=== PATIENT | male | born 1985 | race Caucasian/White ===

== ENCOUNTER 2023-01-11 14:09 | Inpatient (IN) | payer SELFPAY ==
[2023-01-11] VITALS (52 sets, daily range): BP systolic 149–225; BP diastolic 83–134; PULSE 66–106; RESP 10–28; TEMP 36.4–37.1; O2SAT 92–99; BMI 42.1
--- NOTE | 2023-01-11 14:09 | ECG_ITS ---
[facility] Test Date: 2023-01-11 Pat Name: Gokul Adams Department: Room: Gender: Male Licensed Prosthetist: : 1985 Requested By: Jose Ortiz Order Number: [id number] Tae MD: Dean Moreno M.D. Measurements Intervals [place] Rate: 97 P: 44 IL: 164 QRS: 44 QRSD: 90 T: 66 QT: 354 QTc: 451 Interpretive Statements SINUS RHYTHM NON SPECIFIC ST T WAVE CHANGES No previous ECG available for comparison Electronically Signed On 01-11-2023 16:15:02 CDT by Dean Moreno M.D. [id number]
--- NOTE | 2023-01-11 14:15 | XRR_ITS ---
PROCEDURE INFORMATION: Exam: XR Chest Exam date and time: 01/11/2023 2:24 PM Age: 37 years old Clinical indication: Pain; Angina pectoris; Additional info: Chest pain TECHNIQUE: Imaging protocol: Radiologic exam of the chest. Views: 1 view. COMPARISON: No relevant prior studies available. FINDINGS: Lungs: Pulmonary hypoinflation with associated bronchovascular crowding. No consolidation. Pleural spaces: No pleural effusion or pneumothorax. Heart/Mediastinum: Accentuation of the cardiomediastinal silhouette attributed to hypoinflated lungs. Bones/joints: Unremarkable. XR/XR chest 1V portable [id number] IMPRESSION: Pulmonary hypoinflation without acute findings.
--- NOTE | 2023-01-11 14:15 | ED_ITS ---
HPI - Chest Pain General: Chief Complaint: Chest Pain Stated Complaint: stemi Time Seen by Provider: 01/11/23 14:15 Source: patient Mode of arrival: EMS ([facility]) History of Present Illness: 37-year-old male presents to the emergency room with complaints of shortness of breath and chest pain. 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 Is a strong family history of coronary artery disease his father in his 40s myocardial infarction. He is not previously been known to have any coronary artery disease. MD complaint: chest pain Onset (ago): minute(s) Timing of current episode: episodic Prior episodes: No Onset: during rest Pain location: left chest Pain radiation: left arm Severity: moderate Quality: tightness, aching and heaviness Relieving factors: nothing Exacerbating factors: nothing Associated symptoms: Deny abdominal pain, diaphoresis, dyspnea, fever(s), leg edema, nausea, palpitations, sense of impending doom, syncope or vomiting Treatment prior to arrival: none Review of Systems Const: Denies: fever(s), chills or diaphoresis Card: Reports: chest pain; Denies: palpitations, edema or syncope Resp: Denies: dyspnea GI: Denies: abdominal pain, nausea or vomiting : Denies: flank pain, dysuria, urinary frequency or urinary urgency Skin/Breast: Denies: rash or pruritus PFS ED PFSH: Medical History Methamphetamine abuse Physical Exam Const: GENERAL APPEARANCE: cooperative and comfortable ORIENTATION/CONSCIOUSNESS: Yes awake, Yes oriented to person, Yes oriented to place and Yes oriented to time HENMT: COMMON NORMALS: normocephalic, atraumatic and hearing grossly normal bilaterally HEAD & SCALP: normocephalic and atraumatic Resp: COMMON NORMALS: normal respiratory effort, No retractions, No use of accessory muscles and clear to auscultation bilaterally AUSCULTATION: clear to auscultation bilaterally Cardio: COMMON NORMALS: regular rate, regular rhythm and No murmurs present (Cardio) RATE: regular rate RHYTHM: regular rhythm GI: COMMON NORMALS: Soft to palpation and No hepatosplenomegaly present AUSCULTATION: Yes normoactive bowel sounds PALPATION: Yes Soft to palpation, No Tenderness to palpation present (GI), No Guarding due to palpation present (GI) and Yes No hepatosplenomegaly present Extremity: COMMON NORMALS: normal to inspection, capillary refill normal, no clubbing, cyanosis or edema, no calf tenderness and no pedal edema Neuro: SENSORIUM/ORIENTATION: Yes oriented to person, Yes oriented to place and Yes oriented to time Skin: COMMON NORMALS: no rashes or lesions noted GENERAL SKIN EXAM: no rashes or lesions noted Course Vital Signs: Vital signs: Vital Signs Temperature 98.8 F 01/11/23 14:15 Pulse Rate 96 01/11/23 14:30 Respiratory Rate 16 01/11/23 14:30 Blood Pressure 150/99 01/11/23 14:30 Pulse Oximetry 93 01/11/23 14:30 Oxygen Delivery Me thod Room Air 01/11/23 14:30 MDM - Chest Pain Medical Decision Making Acute ST elevation [place] patient given Plavix and heparin. Dr. Fan is at the bedside seen the patient reviewed the EKG concurs she is planning to take him directly to the Gas Compressor Turbine Operator. Medical Records I reviewed the patient's medical records. Lab Data I reviewed the patient's lab results. Radiology Impressions Chest X-Ray 01/11/23 14:15 IMPRESSION: Pulmonary hypoinflation without acute findings. All radiology interpretation(s) finalized by discharge Discharge Plan Discharge Patient Disposition: Admitted As Inpatient Clinical Impression: ST elevation myocardial infarction (STEMI), Methamphetamine abuse Condition: Stable Coding Level of Care Code ED Color Matcher for Lalita Persaud
[2023-01-11] MEDS: clopidogrel 300 mg Tablet 600 MG PO (14:20)
[2023-01-11] MEDS: heparin 5,000 unit/mL INJ 1 mL 4000 UNIT IVP (14:23)
--- NOTE | 2023-01-11 14:29 | PM.HP ---
Providers/Chief Complaint Admitting Physician: Dean Moreno MD/ Interventional Cardiology Chief Complaint: Chest pain History of Present Illness Gokul Adams is a 37 year old male with no significant prior cardiac history, family history of CAD who called EMS when he started having severe substernal chest pain. He was given aspirin and EKG in the field showed borderline ST T wave changes in anterior leads and inferior leads. STEMI alert was called. On arrival to the emergency room his EKG had dynamic changes however not meeting STEMI criteria. At this time he was chest pain-free. Given patient's chest pain decided to emergently take him to the cardiac Methods Analyst. Patient had told emergency room team about methamphetamine earlier today. Review of Systems Const: Denies: fever(s), chills or diaphoresis Card: Reports: chest pain; Denies: palpitations, edema or syncope Resp: Denies: dyspnea GI: Denies: abdominal pain, nausea or vomiting : Denies: flank pain, dysuria, urinary frequency or urinary urgency Skin/Breast: Denies: rash or pruritus Medications/Allergies Allergies Allergy/AdvReac Type Severity Reaction Status Date / Time No Known Allergies Allergy Verified 01/11/23 14:24 PFSH Acute PFSH: Medical History Methamphetamine abuse Vitals/I&O/Wt Last Vital Signs Temp 98.8 F 01/11/23 14:15 Pulse 106 H 01/11/23 14:15 Resp 22 H 01/11/23 14:15 BP 225/120 01/11/23 14:17 Pulse Ox 98 01/11/23 14:17 O2 Del Method Room Air 01/11/23 14:17 Weight last 48 hrs Weight 277 lb Physical Exam Narrative: GENERAL: Patient is alert, awake and oriented x3. [] NECK: No jugular vein distension. [] HEENT: No cyanosis. No icterus. No pallor. [] HEART: Regular S1 and S2. No murmur, rub or gallop. [] LUNGS: Clear to auscultate bilaterally. []] CENTRAL NERVOUS SYSTEM: Grossly nonfocal. [] EXTREMITIES: Lower extremities with 1+ edema bilaterally. Data 01/11/23 15:26 01/11/23 15:26 A&P Assessment and plan (1) Unstable angina: (2) Methamphetamine abuse: Plan Patient EKG is not meeting STEMI criteria however he did have dynamic EKG changes in anterior and inferior leads. Given his on and off chest pain that is severe, family history of CAD we will proceed with emergent cardiac catheterization with possible percutaneous coronary intervention. Risks and benefits of the procedure have been discussed with the patient. He understands them and wants to proceed. Patient given aspirin, Plavix and heparin bolus. We will order echocardiogram. Postprocedure patient will be transferred to ICU. Attestations Medical Necessity Statement*: Care expected to cross 2 midnights. Patient has presented with unstable angina and going for emergent cardiac catheterization with possible percutaneous coronary intervention. Coding Level [facility] Care Code [facility] Unstable angina I20.0 Methamphetamine abuse F15.10
--- NOTE | 2023-01-11 14:32 | XACV_ITS ---
Exam Room: 2 Ht: 173 cm Wt: 126 kg BSA: 2.52 m2 Gender: Male : 1985 Any Known Allergies: No known allergies Exam Priority: Routine Indication(s): - Acute coronary syndrome - Unstable angina Procedure(s): Procedure Description: Diagnostic procedure Procedure Description: PCI procedure Procedure Description: Coronary IVUS Procedure Description: Drug Eluting Coronary Stent Procedure Description: PTCA Procedure Description: Miscellaneous Procedure Description: Angio-Seal Procedure Description: ACT Procedure Description: Coronary Angiography Diagnostic Cath Status: Emergency Diagnostic Findings * INDICATION: 37-year-old man with no prior cardiac history called EMS with severe substernal chest pain. STEMI alert was called as patient was having dynamic EKG changes however EKG performed in ER did not show ST elevation LA. Given patient's typical chest pain consistent with unstable angina and dynamic EKG changes, we decided to take patient for emergent cardiac cath. * Left Main has no significant disease. * Circumflex has no significant disease. * Right Coronary Artery has no disease. * Proximal Left Anterior Descending: severe 90% stenosis, SURJIT: 3 flow. * Coronary angiography shows right dominance. PCI Status: Emergency PCI Indication: Other Interventional Findings * Procedure detail: We engaged left main artery with XB 3.5 guide catheter. IV heparin was administered to maintain anticoagulation. 0.014 run-through guidewire was used to cross the stenosis and was put in distal LAD. We predilated the stenosis with 2.5 x 12 mm semicompliant balloon. This was followed by placement of 3.5 x 15 mm resolute Boris drug-eluting stent. We then performed IVUS that showed minimal underexpansion of the stent. We proceeded with high pressure post dilation with 3.5x12 mm NC balloon. At this time final angiogram was performed that showed excellent stent expansion, no residual stenosis and SURJIT-3 flow. Patient left the Airborne And Air Delivery Specialist in stable condition.. * Proximal Left Anterior Descendin% stenosis treated with a AB TREK 2.50X12 RX BALLOON, BHANU Montemayor BORIS 3.5X15 SARA, and BHANU MARTINEZ EUPHORA RX [id number] BALLOON. 0% residual stenosis, SURJIT: 3 flow. Conclusions 1. Severe proximal LAD stenosis status post PCI with 1 stent.. 2. Proximal Left Anterior Descending was treated with a Balloon, Drug Eluting Stent, and Balloon. Recommendations * Dual antiplatelet therapy with aspirin and Plavix for least 1 year. * High intensity statin therapy. * Outpatient cardiology follow-up in 2 to 4 weeks. Interventional RX Recommendation: PCI w/o planned CABG Diagnostic RX Recommendation: PCI w/o planned CABG Anticoagulation: Heparin Pressures Phase:Rest AO : 125 / 105 ( 116 ) @ 3:53:00 PM 115 / 99 ( 108 ) @ 4:02:00 PM 138 / 82 ( 106 ) @ 4:06:00 PM 127 / 100 ( 114 ) @ 4:33:00 PM 120 / 105 ( 113 ) @ 4:40:00 PM Clinical Evaluation EBL: 5mL-10mL Procedural Details Pre-Procedure Time Out. Identified patient by full name and date of as verbalized by the patient/guarantor. Does the consent match the physician's order: N/A Emergent; Informed Consent not obtained due to time critical life threat. Accurate & Complete Informed Consent: N/A Emergent; Informed Consent not obtained due to time critical life threat. Inpatient/Outpatient History & Physical on Chart: N/A Emergent; Informed Consent not obtained due to time critical life threat. If H&P is completed, is and addenduem needed: N/A Emergent; Informed Consent not obtained due to time critical life threat; If yes, is the addendum complete: N/A Emergent; Informed Consent not obtained due to time critical life threat. Visualize and Verify Site with Patient/Guarantor: N/A. Relevant Radiology Images available: N/A Emergent; Informed Consent not obtained due to time critical life threat. Pre-op teaching completed and patient verbalized understanding. The risks, benefits, and alternatives of sedation and/or procedure were discussed by physician. The patient agrees to continue. Procedure started. [facility] Clinical Fraility Score: 3: Managing Well. Airborne And Air Delivery Specialist Indications: ACS <= 24 hours. Chest Pain Symptom Assessment: Typical Angina Symptoms. Cardiovascular Instability: Yes, if yes, Persistant Ischemic Symptoms. Correct patient, site and procedure confirmed by cath team. Current diagnosis: STEMI. PERRLA. Strong, equal hand cold roll packer sheet iron bilaterally. Lungs clear x 5 lobes. IV Site on Arrival: 18 gauge in the right anticubital. IV Site on Arrival: 18 gauge in the left anticubital. IV Fluids: 0.9% NaCl at KVO. 0 mL infused prior to laboratory geneticist. Pre Procedural Pulses: bilateral dorsalis pedis was 3+. Pre Procedural Pulses: bilateral posterior tibial was 3+. Pre Procedural Pulses: bilateral radial was 3+. Oxygen started at 2liters/min via nasal canula. right groin was prepped with chloroprep then draped in the usual sterile fashion. right radial was prepped with chloroprep then draped in the usual sterile fashion. Physician notified. Baseline sample Acquired. HR: 86 BPM. Patient's family unavailable. Equipment: 6F - Radial. Cardiac Cath Pack. ACIST Manifold Kit Model BT 2000. Heparinized Saline (2 units/mL), 1000 mL bag. Physician arrived. Physician scrubbed in. Immediate Pre-Procedure Time Out. Correct Patient: Yes; Correct Procedure: Yes; Correct Site: N/A Emergent; Informed Consent not obtained due to time critical life threat; Correct Patient Position: N/A Emergent; Informed Consent not obtained due to time critical life threat; Correct Supplies: N/A Emergent; Informed Consent not obtained due to time critical life threat; Dried Flammable Prep: N/A Emergent; Informed Consent not obtained due to time critical life threat; Blood Products Available: N/A Emergent; Informed Consent not obtained due to time critical life threat;. Lidocaine 1% infiltrated to the right radial. Arterial access obtained. Unable to thread wire. Needle and wire out, Dr. Moreno holding manual pressure. Arterial access obtained. A 5 paraguayan TIG catheter in over the exchange J wire. Unable to cannulate the LCA or RCA. Catheter removed over the exchange J wire. A 5 paraguayan JR4 catheter in over the exchange J wire. Multiple views taken of right coronary artery. Catheter removed over the exchange J wire. A 5 paraguayan JL3.5 catheter in over the exchange J wire. Multiple views taken of left coronary artery. Catheter removed over the exchange J wire. 6 paraguayan XB 3 guide catheter was inserted over the the exchnge J wire. Guide catheter out over the exchange J wire. 6 paraguayan XB 3.5 guide catheter was inserted over the the exchange J wire. Guide catheter out over the exchange J wire. Not enough guide support for PCI, will move to femoral access. A TR Band was successful obtaining hemostatsis at the Right Radial artery insertion site. Anesthesia called for assistance with sedation. Lidocaine 1% infiltrated to the right groin. Arterial access obtained with micropuncture set. Lidocaine 1% infiltrated to the right groin. Anesthesia here, but did not bring equipment. Will go back to OR. 6 paraguayan XB 3.5 guide catheter was inserted over the the exchange J wire. Runthrough guidewire was advanced through the guide catheter to lesion in the prox LAD. Inflation number : 1 A AB TREK 2.50X12 RX BALLOON was prepped and advanced across the Prox LAD , then inflated to 12 DM for 0:15 seconds. Inflation number: 2 The AB TREK 2.50X12 RX BALLOON was reinflated across the Prox LAD, to 12 DM for 0:18 seconds. Balloon out. Results checked. Anesthesia here. See anesthesia record for further airway and sedation management. Inflation Number : 3 A BHANU Montemayor BORIS 3.5X15 SARA -Lot Number# [id number] was prepped and advanced across the Prox LAD. The stent was deployed at 12 DM for 0:18 seconds. Exp 2024-08-21. Stent balloon out over wire. Results checked. IVUS catheter in. Measurements obtained. IVUS catheter out. Inflation number : 4 A BHANU NC EUPHORA RX [id number] BALLOON was prepped and advanced across the Prox LAD , then inflated to 18 DM for 0:13 seconds. Balloon out. Results checked. ACT drawn. Results 332 seconds. Therapeutic limits - pre-heparin administration 90-150 seconds and monitoring heparin during a vascular procedure >250 seconds. Guide catheter out over the exchange J wire. A Right femoral angiogram was performed to determine safe placement of closure device. A Angio-Seal VIP ([place]) was successful obtaining hemostatsis at the Right Femoral artery insertion site. Lot # [id number]. Exp 2023-07-18. Dr. Moreno scrubbed out. Angioseal placed without complications. No signs or symptoms of hematoma noted. Sterile dressing applied per usual sterile fashion. Post Procedure: Pulses reassessed and unchanged. PERRLA. Strong, equal hand cold roll packer sheet iron bilaterally. No VTE prophylaxis required. Medication's Wasted: Nitro = 49.4 mg. Medication's Wasted: Heparin = 2000 units. Total IV fluids: 88 mL. Post-op diagnosis: PCI of the Prox LAD. PCI Indication: Unstable Angina. Complications: none. Estimated blood loss: 5mL-10mL. Responsiveness - Normal response to verbal stimuli; alert and oriented, PERRLA. Airway - Unaffected, no intervention required; spontaneous ventilation. Circulation: W/N/L, pulses unchanged. Nausea/Vomiting: No. Procedure completed. Patient transferred by bed to ICU. Vital chart was stopped. Access Site Site: Right Radial artery Sheath Size: 6 Fr Hemostasis Method: TR Band Hemostasis Success: Successful Site: Right Femoral artery Sheath Size: 6 Fr Hemostasis Method: Angio-Seal VIP ([place]) Hemostasis Success: Successful Procedure Medications Start: 2:42 PM Stop: 2:42 PM Medication: Versed Amount: 1 mg Route: I.V. Start: 2:43 PM Stop: 2:43 PM Medication: Fentanyl Amount: 50 mcg Route: I.V. Start: 2:44 PM Stop: 2:44 PM Medication: Nitrogylcerin Amount: 200 mcg Route: I.A. Start: 2:47 PM Stop: 2:47 PM Medication: Versed Amount: 1 mg Route: I.V. Start: 2:47 PM Stop: 2:47 PM Medication: Fentanyl Amount: 25 mcg Route: I.V. Start: 2:51 PM Stop: 2:51 PM Medication: Heparin Amount: 1000 units Route: I.V. Start: 2:48 PM Stop: 2:48 PM Medication: Nitrogylcerin Amount: 200 mcg Route: I.A. Start: 3:04 PM Stop: 3:04 PM Medication: Fentanyl Amount: 25 mcg Route: I.V. Start: 3:09 PM Stop: 3:09 PM Medication: Nitrogylcerin Amount: 200 mcg Route: I.A. Start: 3:29 PM Stop: 3:29 PM Medication: Heparin Amount: 7000 units Route: I.V. Start: 3:35 PM Stop: 3:35 PM Medication: Heparin Amount: 1000 units Route: I.V. I, the attending physician, have reviewed and verified all procedure medications. Yes, all medications given per verbal order History/Risk Factors Obesity: Yes Report Signatures Finalized by Dean Moreno MD on 01/12/2023 10:40 AM
--- NOTE | 2023-01-11 15:01 | PC.NURSE ---
STEMI alert called at 1400, pt arrived approx 1406 via AIR EVAC, AIR EVAC administered x4 nitro SL, 325 ASA, and started nitro gtt. this nurse administered 4000 units heparin, 600 plavix, NS gtt infusing. pt has bilateral 18G IV's. pt placed in gown, groin/R wrist shaved, seafood specialist arrived at 1413, computer lab assistant arrived at 1430, pt went to computer lab assistant 1432. pts boots left in ED 11.
[2023-01-11] MEDS: sodium chloride 0.9% 1,000 ML 999 ML IV (15:06)
[2023-01-11 15:39] LABS: Basophils # 0.1 10^3/uL (0.0-0.1); Eosinophils # 0.3 10^3/uL (0.0-0.8); Eosinophils % 4.1 %; Hematocrit 42.6 % (37-53); Lymphocytes # 1.8 10^3/uL (0.8-4.8); Lymphocytes % 21.4 %; Mean Corpuscular HGB Conc 32.6 g/dL (30-55); Mean Corpuscular Hemoglobin 29.9 pg (27-33); Mean Corpuscular Volume 91.6 fl (82-101); Mean Platelet Volume 8.1 fL (7.4-10.4); Monocytes # 0.6 10^3/uL (0.2-0.9); Monocytes % 7.6 %; Neutrophils # 5.41 10^3/uL (1.8-7.7); Neutrophils % 65.5 %; Nucleated Red Blood Cells % 0 %; Platelet Count 301 10^3/cmm (157-399); Red Blood Count 4.65 10^6/uL (3.85-5.65); Red Cell Distribution Width 12.1 % (12.1-15.1); White Blood Count 8.26 10^3/uL (3.29-11.43)
[2023-01-11 16:04] LABS: Alanine Aminotransferase 19 U/L (0-41); Albumin Level 3.8 g/dL (3.5-5.2); Alkaline Phosphatase 27 U/L (40-130); Aspartate Amino Transferase 21 U/L (0-40); Blood Urea Nitrogen 12 mg/dL (6-20); Calcium 8.5 mg/dL (8.5-10.5); Carbon Dioxide 26 mmol/L (22-29); Chloride 102 mmol/L (98-107); Globulin 2.7 g/dL (1.3-4.6); Glomerular Filtration Rate 83.6 mL/min (90-130); Glucose 144 mg/dL (65-115); Osmolality Calculated 286 mOsm/kg (285-295); Sodium 137 mmol/L (136-145); Total Bilirubin 0.2 mg/dL (0.15-1.2); Total Protein 6.5 g/dL (6.6-8.7)
--- NOTE | 2023-01-11 16:07 | USCV_ITS ---
Gokul Adams Age: 37 Gender: M : 1985 Exam Date: 01/11/2023 18:33 Ordering Phys: Dean Moreno M.D ([email or web address]) Technologist: JAREK Exam Location: [facility] [place] Indication: post cardiac cath today. No history of cardiac intervention per patient. BP: 159 / 103 HR: 81 Rhythm: Sinus Technical Quality: Adequate MEASUREMENTS (Male / Female) Normal Values 2D ECHO LV Diastolic Diameter PLAX 4.4 cm 4.2 - 5.9 / 3.9 - 5.3 cm LV Systolic Diameter PLAX 2.6 cm IVS Diastolic Thickness 1.7 cm 0.6 - 1.0 / 0.6 - 0.9 cm IVS Systolic Thickness 2.4 cm LVPW Diastolic Thickness 1.5 cm 0.6 - 1.0 / 0.6 - 0.9 cm LVPW Systolic Thickness 2.0 cm LVOT Diameter 2.2 cm LV Ejection Fraction 2D Teich 72.9 % LV Ejection Fraction MOD 2C 61.0 % LV Ejection Fraction 2C AL 61.2 % LA Diameter 4.2 cm LA Width 4.7 cm LA Height 5.7 cm RA Width 3.6 cm RA Height 5.2 cm Aorta at Sinotubular Diameter 3.4 cm IVC Diameter 1.3 cm M-MODE Aortic Annulus Diameter 3.2 cm LA Ao Ratio MM 1.2 MV E Point Septal Separation 0.3 cm DOPPLER AV Peak Velocity 113.0 cm/s LVOT Peak Velocity 104.0 cm/s AV Area Cont Eq vti 3.5 cm squared AV Area Cont Eq pk 3.5 cm squared MV Peak Velocity 97.0 cm/s MV Area PHT 3.7 cm squared Mitral E to A Ratio 1.1 MV E' Velocity 51.0 cm/s Mitral E to MV E' Ratio 8.7 Mitral E to LV E' Lateral Ratio 8.7 Mitral E to LV E' Septal Ratio 8.8 TV Peak E Velocity 43.0 cm/s PV Peak Velocity 118.0 cm/s RV Acceleration Time 0.1 s RV Ejection Time 0.4 s RV AcT/ET 0.2 FINDINGS Left Ventricle Left ventricle is normal in size. LV systolic function is normal with EF of 55 to 60%. No regional wall motion abnormalities are seen. Right Ventricle Normal in size and function Right Atrium Normal in size Left Atrium Normal in size Mitral Valve Structurally normal mitral valve. Aortic Valve Structurally normal aortic valve. No significant stenosis or regurgitation. Tricuspid Valve Trace tricuspid regurgitation. Pulmonic Valve Not well-visualized Pericardium Normal Aorta Normal in size IVC Appears to be normal CONCLUSIONS LV systolic function is normal with EF of 55 to 60%. Trace tricuspid regurgitation. No comparison studies are available Dean Moreno MD (Electronically Signed) Final Date: 12 January 2023 08:16 S
[2023-01-11 16:08] LABS: Troponin(5th) Baseline 130 ng/L (0-15)
[2023-01-11 16:34] LABS: CKMB 21.9 ng/mL (0-10.4)
[2023-01-11 16:36] LABS: Estmated Average Glucose 148; Hemoglobin A1C 6.8 % (4.0-6.0)
[2023-01-11 17:32] LABS: Troponin 5 2HR 239.4 ng/L (0-15); Troponin 5 2HR Delta 109.4 ABS# (0-10)
[2023-01-11] MEDS: hyDRALAzine 20 mg/mL INJ 1 mL 10 MG IVP (17:52)
--- NOTE | 2023-01-11 17:58 | PC.NURSE ---
Recieved patient form track repair laborer staff at 1610. patient is a ittle groggy, but oriented to person, place, time, and situation. BP: 156/107, HR: 80, SPO2: 96% on room air. Temp: 97.9. TR band in place with no signs of internal or external bleeding. Dressing to right groin in place, with no signs of internal or external bleeding. Patient educated on need to keep leg straight and strict bedrest for 4 hours.
--- NOTE | 2023-01-11 18:00 | PC.NURSE ---
Patient is hypertensive. BP: 170/129. Nurse alerted Dr cardenas. recieved order for IVP hydralazine
[2023-01-11 18:43] LABS: Partial Thromboplastin Time 85.7 SECONDS (23.9-36.7)
[2023-01-11] MEDS: losartan 50 mg Tablet 75 MG PO (19:03)
--- NOTE | 2023-01-11 19:31 | PC.NURSE ---
Patient's blood pressure continues to rise. NUrse bladder scanned patient and it shows 900mL retained. Nurse alerted Dr Moreno. Received orders for losartan and to start Edwards. Patient refuses edwards at this time. Patient educated on risks of hypertension and bladder distention/injury. Patient still refuses edwards.
[2023-01-11] MEDS: metoprolol tartrate 50 mg Tablet PO (21:31)
[2023-01-11] MEDS: atorvastatin 40 mg Tablet 80 MG PO (21:31)
[2023-01-11] MEDS: sodium chloride 0.9% 1,000 ML 100 ML IV (21:32)
[2023-01-11 22:49] LABS: Troponin 5 6HR 460.5 ng/L (0-15); Troponin 5 6HR Delta 330.5 ng/L (0-12)
[2023-01-12] VITALS (100 sets, daily range): BP systolic 109–183; BP diastolic 63–116; PULSE 62–83; RESP 14–31; TEMP 36.4; O2SAT 87–97
--- NOTE | 2023-01-12 04:04 | PC.NURSE ---
TR band removed per protocol. 2mls removed @ following times: 2117, 2200, 2230, 2330, 0030, 0100. No hematoma or bleeding observed.
[2023-01-12 06:20] LABS: Basophils # 0.1 10^3/uL (0.0-0.1); Basophils % 1.1 %; Eosinophils # 0.6 10^3/uL (0.0-0.8); Eosinophils % 6.3 %; Hematocrit 47.7 % (37-53); Lymphocytes # 1.6 10^3/uL (0.8-4.8); Lymphocytes % 18.3 %; Mean Corpuscular HGB Conc 32.1 g/dL (30-55); Mean Corpuscular Hemoglobin 29.8 pg (27-33); Monocytes # 0.6 10^3/uL (0.2-0.9); Monocytes % 6.4 %; Neutrophils # 5.94 10^3/uL (1.8-7.7); Neutrophils % 67.7 %; Nucleated Red Blood Cells % 0 %; Platelet Count 307 10^3/cmm (157-399); Red Blood Count 5.13 10^6/uL (3.85-5.65); Red Cell Distribution Width 12.4 % (12.1-15.1); White Blood Count 8.78 10^3/uL (3.29-11.43)
[2023-01-12 06:43] LABS: Anion Gap 13.4 (5-19); Blood Urea Nitrogen 11 mg/dL (6-20); Calcium 8.8 mg/dL (8.5-10.5); Carbon Dioxide 25 mmol/L (22-29); Chloride 103 mmol/L (98-107); Glomerular Filtration Rate 94.4 mL/min (90-130); Glucose 118 mg/dL (65-115); Osmolality Calculated 284 mOsm/kg (285-295); Potassium 4.4 mmol/L (3.5-5.1); Sodium 137 mmol/L (136-145)
[2023-01-12] MEDS: metoprolol tartrate 50 mg Tablet PO (08:27)
[2023-01-12] MEDS: aspirin 81 mg EC Tablet PO (08:27)
[2023-01-12] MEDS: clopidogrel 75 mg Tablet PO (08:28)
--- NOTE | 2023-01-12 08:28 | P.DS_ITS ---
Discharge Providers Date of Admission: 01/11/23 16:28 Date of Discharge: January 12, 2023 Attending Provider at Admission: Dean Moreno M.D Attending Provider at Discharge: Dean Moreno M.D Diagnoses at Discharge Discharge Diagnosis (1) Methamphetamine abuse: Status: Inactive (2) NSTEMI (non-ST elevated myocardial infarction): Status: Inactive (3) Diabetes: Status: Acute (4) Hypertension: Status: Acute Reason for Visit Reason for Visit: Chest pain Brief History: 37 year old male with no significant prior cardiac history, family history of CAD who called EMS when he started having severe substernal chest pain.? He was given aspirin and EKG in the field showed borderline ST T wave changes in anterior leads and inferior leads. STEMI alert was called.? On arrival to the emergency room his EKG had dynamic changes however not meeting STEMI criteria.? At this time he was chest pain- free.? Given patient's chest pain decided to emergently take him to the cardiac Distiller.? Patient had told emergency room team about methamphetamine earlier today. Hospital Course Hospital Course Patient was found to have severe proximal LAD stenosis. He underwent successful revascularization with 1 stent. He states chest pain-free. His echo showed normal LV systolic function. He was discharged home in a stable condition on dual antiplatelet therapy. Physical Exam Narrative: GENERAL: Patient is alert, awake and oriented x3. [] NECK: No jugular vein distension. [] HEENT: No cyanosis. No icterus. No pallor. [] HEART: Regular S1 and S2. No murmur, rub or gallop. [] LUNGS: Clear to auscultate bilaterally. []] CENTRAL NERVOUS SYSTEM: Grossly nonfocal. [] EXTREMITIES: Lower extremities with 1+ edema bilaterally. Discharge Data Studies Completed and Pending Completed Studies During Hospitalization Category Date Time Status XR chest 1V portable [id number] Stat Exams 01/11/23 14:15 Completed CV. echo complete* [id number] Routine Ultrasound 01/11/23 16:07 Completed Pending at discharge Category Date Time Status SOLUTION ADVISOR request for service Stat Exams 01/11/23 14:32 Taken Basic Metabolic Panel AM LABS Lab 01/13/23 04:00 Ordered Basic Metabolic Panel AM LABS Lab 01/14/23 04:00 Ordered Complete Blood Count w/Auto AM LABS Lab 01/13/23 04:00 Ordered Complete Blood Count w/Auto AM LABS Lab 01/14/23 04:00 Ordered Drug Screen, Urine Routine Lab 01/11/23 16:35 Uncollected Drug Screen, Urine Stat Lab 01/11/23 14:15 Uncollected Radiology Impressions Chest X-Ray 01/11/23 14:15 IMPRESSION: Pulmonary hypoinflation without acute findings. Laboratory Results WBC 8.78 10^3/uL (3.29-11.43) 01/12/23 06:09 RBC 5.13 10^6/uL (3.85-5.65) 01/12/23 06:09 Hgb 15.30 g/dL (11.27-16.99) 01/12/23 06:09 Hct 47.7 % (37-53) 01/12/23 06:09 MCV 93.0 fl (82-101) 01/12/23 06:09 MCH 29.8 pg (27-33) 01/12/23 06:09 MCHC 32.1 g/dL (30-55) 01/12/23 06:09 RDW 12.4 % (12.1-15.1) 01/12/23 06:09 Plt Count 307 10^3/cmm (157-399) 01/12/23 06:09 MPV 8.0 fL (7.4-10.4) 01/12/23 06:09 Neut % (Auto) 67.7 % 01/12/23 06:09 Lymph % (Auto) 18.3 % 01/12/23 06:09 [place] % (Auto) 6.4 % 01/12/23 06:09 Eos % (Auto) 6.3 % 01/12/23 06:09 Baso % (Auto) 1.1 % 01/12/23 06:09 Neut # (Auto) 5.94 10^3/uL (1.8-7.7) 01/12/23 06:09 Lymph # (Auto) 1.6 10^3/uL (0.8-4.8) 01/12/23 06:09 [place] # (Auto) 0.6 10^3/uL (0.2-0.9) 01/12/23 06:09 Eos # (Auto) 0.6 10^3/uL (0.0-0.8) 01/12/23 06:09 Baso # (Auto) 0.1 10^3/uL (0.0-0.1) 01/12/23 06:09 Nucleated RBC % (auto) 0 % 01/12/23 06:09 Nucleated RBCs # 0.0 /100WBC 01/12/23 06:09 APTT 85.7 SECONDS (23.9-36.7) H 01/11/23 18:01 Sodium 137 mmol/L (136-145) 01/12/23 06:09 Potassium 4.4 mmol/L (3.5-5.1) 01/12/23 06:09 Chloride 103 mmol/L (98-107) 01/12/23 06:09 Carbon Dioxide 25 mmol/L (22-29) 01/12/23 06:09 Anion Gap 13.4 (5-19) 01/12/23 06:09 BUN 11 mg/dL (6-20) 01/12/23 06:09 Creatinine 0.9 mg/dL (0.7-1.2) 01/12/23 06:09 GFR Calculation 94.4 mL/min (90-130) 01/12/23 06:09 Glucose 118 mg/dL (65-115) H 01/12/23 06:09 Estimat Average Glucose 148 01/11/23 15:26 Hemoglobin A1c 6.8 % (4.0-6.0) H 01/11/23 15:26 Calculated Osmolality 284 mOsm/kg (285-295) L 01/12/23 06:09 Calcium 8.8 mg/dL (8.5-10.5) 01/12/23 06:09 Total Bilirubin 0.2 mg/dL (0.15-1.2) 01/11/23 15:26 AST 21 U/L (0-40) 01/11/23 15:26 ALT 19 U/L (0-41) 01/11/23 15:26 Alkaline Phosphatase 27 U/L (40-130) L 01/11/23 15:26 CK-MB (CK-2) 21.9 ng/mL (0-10.4) H 01/11/23 15:26 Troponin T Baseline 130 ng/L (0-15) H* 01/11/23 15:26 Troponin T 120 Minute 239.4 ng/L (0-15) H 01/11/23 16:58 Delta Troponin T 109.4 ABS# (0-10) H* 01/11/23 16:58 Troponin T Hi Sens 6Hr 460.5 ng/L (0-15) H 01/11/23 21:55 Troponin T Hi Sens 6Hr Delta 330.5 ng/L (0-12) H* 01/11/23 21:55 Total Protein 6.5 g/dL (6.6-8.7) L 01/11/23 15:26 Albumin 3.8 g/dL (3.5-5.2) 01/11/23 15:26 Globulin 2.7 g/dL (1.3-4.6) 01/11/23 15:26 Vitals Last Vital Signs Temp 97.6 F 01/11/23 17:25 Pulse 71 01/12/23 06:20 Resp 21 H 01/12/23 06:20 BP 160/84 01/12/23 06:20 Pulse Ox 92 01/12/23 06:20 O2 Del Method Room Air 01/11/23 19:00 Discharge Plan Discharge Patient Disposition: Home Condition: Stable Prescriptions: New clopidogrel 75 mg Tablet 75 mg PO DAILY Qty: 90 3RF aspirin 81 mg Tablet,Delayed Release (Dr/Ec) 81 mg PO DAILY Qty: 90 3RF losartan 100 mg tablet 100 mg PO DAILY Qty: 90 3RF metoprolol tartrate 50 mg Tablet 50 mg PO BID@0900,2100 Qty: 120 3RF atorvastatin 80 mg tablet 80 mg PO BEDTIME Qty: 90 3RF No Action Aspir-81 81 mg Tablet,Delayed Release (Dr/Ec) 162 mg PO .ONCE ON 01/11/23 Discharge Orders: Discharge Order (Routine); Ordered 01/12/23 Ordered By: Dean Moreno Referrals: Patience Caicedo FNP [Nurse Practitioner] - 01/22/23 10:30 am Kehinde Allen FNP [Nurse Practitioner] - Discharge Diet: Cardiac and Diabetic Discharge Activity: Increase activity as tolerated Patient Instructions: Metoprolol (By mouth), Aspirin (By mouth), Losartan (By mouth), Clopidogrel (By mouth), Hypertension, Heart Healthy Diet (ED), Coronary Intravascular Stent Placement (DC), Opioid Safety Discharge Attestations Time Spent in Discharge Care*: greater than 30 min Quality Metrics Clinical Quality Measures [ Acute Myocardial Infaction { Clinical Trial Participant: No; Contraindication to aspirin: None; Aspirin prescribed; Contraindication to statin: None; Statin prescribed; Contraindication to PCI: None; PCI performed;}] Coding Level of Care Code Acute Code for Chg Fwd Diagnoses Methamphetamine abuse F15.10 NSTEMI (non-ST elevated myocardial infarction) I21.4 Diabetes E11.9 Hypertension I10
--- NOTE | 2023-01-12 08:49 | PC.PHAR ---
pt states he takes no rx medications-pt states on 01/11/23 he took a one time dose of aspirin 162mg (2 tabs)
[2023-01-12] MEDS: nicotine 2 mg Gum BUCCAL (08:54)
[2023-01-12] MEDS: losartan 50 mg Tablet 75 MG PO (09:07)
--- NOTE | 2023-01-12 09:58 | PC.NURSE ---
Patient ready to be discharged. COmpleted discharge assessment Removed bilateral IVs. REviewed new medication, activity, and upcoming appointment information. Meds to bed offered but pt had us send medication to [facility] pharmacy. CUrrently waiting on his transportation to arrive.
== END 2023-01-12 10:32 | disposition home or self-care (01) | DRG 247 ==
LOC: ER 14:32 → CCL 14:34 → ICU 16:28
PROVIDERS: Admitting Provider Internal Medicine; Emergency Provider Family Medicine; Visit Provider Internal Medicine
PROC: 027034Z Dilation of Coronary Artery, One Artery with Drug-eluting Intraluminal Device, Percutaneous Approach (ICD-10-PCS; principal; 2023-01-11 14:35)
PROC: 027034Z Dilation of Coronary Artery, One Artery with Drug-eluting Intraluminal Device, Percutaneous Approach (ICD-10-PCS; 2023-01-11 14:35)
DX: I21.4 Non-ST elevation (NSTEMI) myocardial infarction (principal); I25.110 Atherosclerotic heart disease of native coronary artery with unstable angina pectoris; F15.10 Other stimulant abuse, uncomplicated; E11.9 Type 2 diabetes mellitus without complications; I10 Essential (primary) hypertension; Z82.49 Family history of ischemic heart disease and other diseases of the circulatory system
CPT/HCPCS: 36415; 71045; 80048; 80053; 82553; 83036; 84484; 85025; 85347; 85730; 92978; 93005; 93306; 93454; 94002; 96365; 96366; 96367; 96375; 96376; 99152; 99153; 99285; C1725; C1753; C1760; C1769; C1874; C1887; C1894; C9600; G0269; J0360; J1644; J2250; J2704; J3010; J3490; J7030; Q9967

== ENCOUNTER 2025-03-13 19:59 | Inpatient (IN) | payer SELFPAY ==
[2025-03-13] VITALS (9 sets, daily range): BP systolic 141–161; BP diastolic 86–127; PULSE 74–94; RESP 18; TEMP 36.9; O2SAT 95–96; BMI 37.8
--- NOTE | 2025-03-13 20:06 | ECG_ITS ---
[facility] Test Date: 2025-03-13 Pat Name: Gokul Adams Department: Room: Gender: Male Pharmacognosy Teacher: : 1985 Requested By: Jose Ortiz Order Number: [id number] Tae MD: Raul Morales M.D. Measurements Intervals Cord Rate: 91 P: 29 MS: 166 QRS: 24 QRSD: 88 T: 63 QT: 332 QTc: 409 Interpretive Statements SINUS RHYTHM Compared to ECG 01/11/2023 14:09:21 T-wave abnormality no longer present Electronically Signed On 03-15-2025 17:46:38 TAKER OUT by Raul Morales M.D. [email or web address]
--- OUTSIDE RECORDS SUMMARY | 2025-03-13 20:07 | XMS_ITS | Encounter Summary ---
Author Organization [facility] Address [address] [place] [address] Care Team Providers Care Power House Control Room Operator Name Role Phone Kwan Barrera MD Primary Care Provider [phone] Encounter Details Date Type Department Care Team (Late st Contact Info) Description 03/06/2025 External Device Data STL ABSTRACTION Provider, Abstract NO ADDRESS ON FILE Social History Tobacco Use Types Packs/Day Years Used Date Smoking Tobacco: Every Day Cigarettes Smokeless Tobacco: Never Alcohol Use Standard Drinks/Week Comments Not Currently 0 (1 standard drink = 0.6 oz pur e alcohol) Feeling Safe Answer Date Recorded Are you in a relationship wi th someone who hurts you emotionally and/or physically? No 01/12/2024 Sex and Gender Information Value Date Recorded Sex Assigned at Not on file Legal Sex Male 12:17 PM TOOL LIAISON Gender Identity Not on file Sexual Orientation Not on file documented as of this encounter Plan of Treatment Not on file documented as of this encounter Visit Diagnoses Not on filedocumented in this encounter Care Teams Power House Control Room Operator Relationship Specialty Start Date End Date Kwan Barrera MD [address] [facility] [address] [place] [address] PCP - General Family Practice 12/21/24 documented as of this encounter
--- OUTSIDE RECORDS SUMMARY | 2025-03-13 20:07 | XMS_ITS | Clinical Summary ---
Author Organization [facility] Address [address] Caceresn: Epic Prelude ADT [place] [address] Care Team Providers Care Music Professor Name Role Phone Kwan Barrera MD Primary Care Provider [phone] Allergies No known active allergies Medications aspirin (ECOTRIN EC) 81 mg Tablet, Delayed Release (E.C.)Indicatio ns:HTN (hypertension), benign,History of acute myocardial infarction Take 1 Tablet (81 mg) by mouth daily. 30 Tablet 5 01/17/2025 Active clopidogreL (PLAVIX) 75 mg TabletIndicatio ns:HTN (hypertension), benign,History of acute myocardial infarction Take 1 Tablet (75 mg) by mouth daily. 30 Tablet 5 01/17/2025 Active losartan (COZAAR) 50 mg tabletIndicatio ns:HTN (hypertension), benign,History of acute myocardial infarction Take 1 Tablet (50 mg) by mouth daily. 90 Tablet 5 01/17/2025 Active metoprolol tartrate (LOPRESSOR) 50 mg tabletIndicatio ns:HTN (hypertension), benign,History of acute myocardial infarction Take 1 Tablet (50 mg) by mouth 2 times daily. 60 Tablet 5 01/17/2025 5 atorvastatin (LIPITOR) 80 mg tabletIndicatio ns:HTN (hypertension), benign,History of acute myocardial infarction Take 1 Tablet (80 mg) by mouth daily. 30 Tablet 5 01/17/2025 5 Active Problems No known active problems Encounters Date Type Department Care Team Description 03/06/2025 External Device Data STL ABSTRACTION Provider, Abstract 02/20/2025 External Device Data STL ABSTRACTION Provider, Abstract 02/14/2025 External Device Data [facility] ABSTRACTION Provider, Abstract 02/13/2025 External Device Data [facility] ABSTRACTION Provider, Abstract 01/17/2025 9:00 AM CDT Office Visit [address] [address] Tricia Valentin, PATTIE Encounter for follow-up examination (Primary Dx); HTN (hypertension), benign; History of acute myocardial infarction 01/15/[address] [address] Danika Lindsay FNP HTN (hypertension), benign; History of acute myocardial infarction 01/03/2025 External Device Data STL ABSTRACTION Provider, Abstract 01/02/2025 External Device Data ST[facility] ABSTRACTION Provider, Abstract 01/02/2025 External Device Data STL ABSTRACTION Provider, Abstract 12/29/2024 Results Follow-Up [address] [address] Danika Lindsay FNP COMPREHENSIVE METABOLIC PANEL, CBC WITH DIFFERENTIAL 12/28/[address] [address] Kwan Barrera MD 12/28/2024 Orders Only [facility] [place] [address] [place] [address] Danika Lindsay FNP 12/26/2024 External Device Data STL ABSTRACTION Provider, Abstract 12/26/2024 External Device Data STL ABSTRACTION Provider, Abstract 12/26/2024 External Device Data STL ABSTRACTION Provider, Abstract 12/21/2024 10:20 AM CDT Office Visit [address] [address] Danika Lindsay FNP HTN (hypertension), benign (Primary Dx); Declined influenza vaccine; History of acute myocardial infarction from Last 3 Months Social History Tobacco Use Types Packs/Day Years Used Date Smoking Tobacco: Every Day Cigarettes Smokeless Tobacco: Never Tobacco Cessation:Ready to Q uit: Not Asked; Counseling Given: Not Answered Alcohol Use Standard Drinks/Week Comments Not Currently 0 (1 standard drink = 0.6 oz pur e alcohol) Feeling Safe Answer Date Recorded Are you in a relationship wi th someone who hurts you emotionally and/or physically? 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 Gender Identity Not on file Sexual Orientation Not on file Last Filed Vital Signs Vital Sign Reading Time Taken Comments Blood Pressure 131/85 01/17/2025 9:05 AM CDT Pulse 84 01/17/2025 9:05 AM CDT Temperature 36.5 C (97.7 F) 01/17/2025 9:05 AM CDT Respiratory Rate 16 01/17/2025 9:05 AM CDT Oxygen Saturation 96% 01/17/2025 9:05 AM CDT Inhaled Oxygen Concentration - - Weight 121.5 kg (267 lb 12.8 oz) 01/17/2025 9:05 AM CDT Height 175.3 cm (5' 9 ) 01/17/2025 9:05 AM CDT Body Mass Index 39.55 01/17/2025 9:05 AM CDT Plan of Treatment Health Maintenance Due Date Last Done Comments DTAP/TDAP/TD VACCINES (1 - Tdap) 2003 HEPATITIS B VACCINES (1 of 3 - 19+ 3-dose series) 04/20 HPV VACCINES (1 - 3-dose SCDM series) 2011 INFLUENZA VACCINE (#1) 2024 Pre-Diabetes and Diabetes Screening 12/23/202712/22 Procedures Procedure Name Priority Date/Time Associated Diagnosis Comments CBC WITH DIFFERENTIAL Routine 12/22/2024 12:04 PM CDT COMPREHENSIVE METABOLIC PANEL Routine 12/22/2024 12:04 PM CDT HEMOGLOBIN A1C Routine 12/22/2024 from Last 3 Months Results * CBC WITH DIFFERENTIAL (12/22/2024 12:04 PM CDT) Blood Danika Shaylee Lindsay [facility] HEMATOLOGY ORDERABLES Letty l Result * COMPREHENSIVE METABOLIC PANEL (12/22/2024 12:04 PM CDT) Blood Result [place] [facility] Shaylee Lindsay [facility] CHEMISTRY ORDERABLES Final Result * HEMOGLOBIN A1C (12/22/2024) ABSTRACTED HGB A1C 7.1 % Blood 12/22/2024 Result [place] [facility] June Angélica [facility] CHEMISTRY ORDERABLES Final Result from Last 3 Months Care Teams Music Professor Relationship Specialty Start Date End Date Kwan Barrera MD [address] [phone] PCP - General Family Practice 12/21/24
--- OUTSIDE RECORDS SUMMARY | 2025-03-13 20:07 | XMS_ITS | Encounter Summary ---
Author Organization [facility] Address [address] [place] [address] Care Team Providers Care Production Cell Leader Name Role Phone KIP Allen Sr., Karel Busby Primary Care Pro vider Encounter Details Date Type Department Care Team (Latest Contact Info) Description 02/24/1999 Outpatient Historical [facility] Family Medicine- [place] [facility] [address] [place] [address] Shaylee Medina NO ADDRESS ON FILE Crushing injury finger (Primary Dx); Cellulitis and abscess of finger, unspecified Social History Tobacco Use Types Packs/Day Years Used Date Smoking Tobacco: Never Assessed Sex and Gender Information Value Date Recorded Sex Assigned at Not on file Legal Sex Male 4:22 AM LODGING MANAGER Gender Identity Not on file Sexual Orientation Not on file documented as of this encounter Plan of Treatment Not on file documented as of this encounter Visit Diagnoses Diagnosis Crushing injury finger- Primary Crushing injury of finger(s) Cellulitis and abscess of finger, unspecified documented in this encounter Care Teams Production Cell Leader Relationship Specialty Start Date End Date Karel Allen Sr., FNP [address] [place] [address] PCP - General NURSE PRACTITIONER 07/07/12 10/24/16 documented as of this encounter
--- OUTSIDE RECORDS SUMMARY | 2025-03-13 20:07 | XMS_ITS | Encounter Summary ---
Author Organization [facility] Address [address] [place] [address] Care Team Providers Care Social Service Director Name Role Phone KIP Allen Sr., Karel Busby Primary Care Pro vider Encounter Details Date Type Department Care Team (Latest Contact Info) Description 02/14/2003 Outpatient Historical [facility] Family Medicine- [place] [address] [place], [place] [address] Lor Kim MD NO ADDRESS ON FILE ACUTE PHARYNGITIS (Primary Dx); ACUTE TONSILLITIS; ACUTE BRONCHITIS Social History Tobacco Use Types Packs/Day Years Used Date Smoking Tobacco: Never Assessed Sex and Gender Information Value Date Recorded Sex Assigned at Not on file 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
--- OUTSIDE RECORDS SUMMARY | 2025-03-13 20:07 | XMS_ITS | Clinical Summary ---
Author Organization [facility] Address [facility] [place] [address] Care Team Providers Care Welcome Center Attendant Name Role Phone Unavailable Primary Care Provider Unavailabl e Allergies No known active allergies Medications No known medications Active Problems No known active problems Social History Tobacco Use Types Packs/Day Years Used Date Smoking Tobacco: Every Day Cigarettes Smokeless Tobacco: Never Alcohol Use Standard Drinks/Week Comments Yes 0 (1 standard drink = 0.6 oz pur e alcohol) occasional Sex and Gender Information Value Date Recorded Sex Assigned at Not on file Legal Sex Male 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5 kg (270 lb) 05/26/2019 7:16 PM MECHANICAL SYSTEMS DESIGNER Height 175.3 cm (5' 9 ) 05/26/2019 7:16 PM MECHANICAL SYSTEMS DESIGNER Body Mass Index 39.87 05/26/2019 7:16 PM MECHANICAL SYSTEMS DESIGNER Plan of Treatment Health Maintenance Due Date Last Done Comments DTAP/TDAP/TD VACCINES (1 - Tdap) 2003 HEPATITIS B VACCINES (1 of 3 - 19+ 3-dose series) 04/20 HPV VACCINES (1 - 3-dose SCDM series) 2011 INFLUENZA VACCINE (#1) 2024
--- OUTSIDE RECORDS SUMMARY | 2025-03-13 20:07 | XMS_ITS | Encounter Summary ---
Author Organization [facility] Address [address] [place] [address] Care Team Providers Care Head Sampler Name Role Phone KIP Allen Sr., Karel Busby Primary Care Pro vider Encounter Details Date Type Department Care Team (Latest Contact Info) Description 11/25/1999 Outpatient Historical [facility]- [place] [address] [place] [address] Navi Mondragon, NO ADDRESS ON FILE Infective otitis externa, unspecified (Primary Dx); Acute pharyngitis Social History Tobacco Use Types Packs/Day Years Used Date Smoking Tobacco: Never Assessed Sex and Gender Information Value Date Recorded Sex Assigned at Not on file Legal Sex Male 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
--- OUTSIDE RECORDS SUMMARY | 2025-03-13 20:07 | XMS_ITS | Encounter Summary ---
Author Organization [facility] Address [address] [place] [address] Care Team Providers Care Shade Maker Name Role Phone KIP Allen Sr., Karel Busby Primary Care Pro vider Encounter Details Date Type Department Care Team (Latest Contact Info) Description 02/28/1999 Outpatient Historical [facility] Family Medicine- [place] [address] [place] [address] Shaylee Medina NO ADDRESS ON FILE Closed fracture of unspecified phalanx or phalanges of hand (Primary Dx); Cellulitis and abscess of finger, unspecified; Open wound of finger(s) , without mention of complication Social History Tobacco Use Types Packs/Day Years Used Date Smoking Tobacco: Never Assessed Sex and Gender Information Value Date Recorded Sex Assigned at Not on file Legal Sex Male 4:22 AM CHART COLLECTOR Gender Identity Not on file Sexual Orientation Not on file documented as of this encounter Plan of Treatment Not on file documented as of this encounter Visit Diagnoses Diagnosis Closed fracture of unspecified phalanx or phalanges of hand- Primary Cellulitis and abscess of finger, unspecified Open wound of finger(s) , without mention of complication documented in this encounter Care Teams Shade Maker Relationship Specialty Start Date End Date Karel Allen Sr., FNP [address] [place] [address] PCP - General NURSE PRACTITIONER 07/07/12 10/24/16 documented as of this encounter
--- NOTE | 2025-03-13 20:08 | XRR_ITS ---
PROCEDURE INFORMATION: Exam: XR Chest Exam date and time: 03/13/2025 8:14 PM Clinical indication: Pain; Chest pressure; Prior surgery; Surgery date: 6+ months; Surgery type: Cardiac stents; Additional info: Chest pain TECHNIQUE: Imaging protocol: Radiologic exam of the chest. Views: 1 view. COMPARISON: No relevant prior studies available. FINDINGS: Lungs: Unremarkable. No consolidation. Pleural spaces: Unremarkable. No pleural effusion. No pneumothorax. Heart/Mediastinum: Unremarkable. No cardiomegaly. Bones/joints: Unremarkable. XR/XR chest 1V portable [id number] IMPRESSION: No acute findings.
[2025-03-13 20:37] LABS: Hematocrit 47.9 % (37-53); Hemoglobin 16.20 g/dL (11.27-16.99); Mean Corpuscular HGB Conc 33.8 g/dL (30-55); Mean Corpuscular Hemoglobin 30.0 pg (27-33); Mean Corpuscular Volume 88.7 fl (82-101); Nucleated Red Blood Cells % 0 %; Platelet Count 305 10^3/cmm (157-399); Red Blood Count 5.40 10^6/uL (3.85-5.65); White Blood Count 7.37 10^3/uL (3.29-11.43)
[2025-03-13] MEDS: nitroglycerin 1 gm/inch oint Pkt 0.5 INCH TOPICAL (20:54)
[2025-03-13 20:59] LABS: Alanine Aminotransferase 20 U/L (0-41); Albumin Level 4.0 g/dL (3.5-5.2); Alkaline Phosphatase 45 U/L (40-130); Aspartate Amino Transferase 15 U/L (0-40); Blood Urea Nitrogen 14 mg/dL (6-20); Calcium 9.0 mg/dL (8.5-10.5); Carbon Dioxide 25 mmol/L (22-29); Chloride 101 mmol/L (98-107); Globulin 3.0 g/dL (1.3-4.6); Glucose 305 mg/dL (65-115); Osmolality Calculated 296 mOsm/kg (285-295); Sodium 137 mmol/L (136-145); Total Protein 7.0 g/dL (6.6-8.7); Troponin(5th) Baseline 21 ng/L (0-15)
--- NOTE | 2025-03-13 21:02 | W.ED.CHESTPA ---
HPI - Chest Pain General: Chief Complaint: Chest Pain Stated Complaint: CP, SOB Time Seen by Provider: 03/13/25 20:08 History of Present Illness: 39-year-old male who presents to the emergency room with complaints of chest pain. He has known history of coronary artery disease approximately 2 years ago he had a LAD stent placed at our facility. He has not had was for follow-up for that then he maintains that he is still taking his aspirin and clopidogrel he is on metoprolol and losartan as well recently decreased losartan because he was having some orthostatic like symptoms. In the last week he began having chest pain initially with activity the chest pain resolved with rest and then today began having chest pain while at rest that was persistent. He is not having any chest pain at this time. He has known history of diabetes as well. Prior to the previous week he had not had any episodes of chest pain. He has not had any follow-up evaluation such as cardiac stress testing or repeat angiogram since the initial angiogram in December 2022 Associated symptoms: Deny abdominal pain, dyspnea or fever(s) Related Data Home Medications ?Medication ?Instructions ?Recorded ?Confirmed aspirin 81 mg tablet,delayed 162 mg PO .ONCE ON 01/11/23 01/12/23 01/22/23 release Previous Rx's ?Medication ?Instructions ?Recorded atorvastatin 80 mg tablet 80 mg PO BEDTIME #90 tabs 01/12/23 clopidogrel 75 mg tablet 75 mg PO DAILY #90 tabs 01/12/23 metoprolol tartrate 50 mg tablet See Rx Instructions .Route 01/21/24 .COMPLEX #60 tabs aspirin 81 mg tablet,delayed 81 mg PO DAILY #90 tabs 02/21/24 release losartan 100 mg tablet 100 mg PO DAILY #90 tabs 02/21/24 Allergies Allergy/AdvReac Type Severity Reaction Status Date / Time No Known Allergies Allergy Verified 01/22/23 11:29 Review of Systems Const: Denies: fever(s) or chills Card: Denies: chest pain Resp: Denies: dyspnea GI: Denies: abdominal pain : Denies: dysuria, urinary frequency or urinary urgency Musc: Denies: neck pain or back pain Skin/Breast: Denies: rash PFSH ED PFSH: Medical History Coronary artery disease NSTEMI (non-ST elevated myocardial infarction) Methamphetamine abuse Physical Exam Const: GENERAL APPEARANCE: cooperative ORIENTATION/CONSCIOUSNESS: Yes awake, Yes oriented to person, Yes oriented to place and Yes oriented to time HENMT: COMMON NORMALS: normocephalic, atraumatic and hearing grossly normal bilaterally HEAD & SCALP: normocephalic and atraumatic Resp: COMMON NORMALS: normal respiratory effort, No retractions, No use of accessory muscles and clear to auscultation bilaterally AUSCULTATION: clear to auscultation bilaterally Cardio: COMMON NORMALS: regular rate, regular rhythm and No murmurs present (Cardio) RATE: regular rate RHYTHM: regular rhythm GI: COMMON NORMALS: Soft to palpation and No hepatosplenomegaly present AUSCULTATION: Yes normoactive bowel sounds PALPATION: Yes Soft to palpation, No Tenderness to palpation present (GI), No Guarding due to palpation present (GI) and Yes No hepatosplenomegaly present Extremity: COMMON NORMALS: normal to inspection, capillary refill normal, no clubbing, cyanosis or edema, no calf tenderness and no pedal edema Neuro: SENSORIUM/ORIENTATION: Yes oriented to person, Yes oriented to place and Yes oriented to time Skin: COMMON NORMALS: no rashes or lesions noted GENERAL SKIN EXAM: no rashes or lesions noted Course Vital Signs: Vital signs: Vital Signs Temperature 98.4 F 03/13/25 20:15 Pulse Rate 94 03/13/25 20:15 Respiratory Rate 18 03/13/25 20:15 Blood Pressure 161/116 03/13/25 20:15 Pulse Oximetry 96 03/13/25 20:15 Oxygen Delivery Me thod Room Air 03/13/25 20:15 MDM - Chest Pain Medical Decision Making Medical decision making Social determinants: Patient has good social support attends with family member I reviewed the patient's medical record. I reviewed the patient's current home meds Alternate historians: None Differential diagnosis: Unstable angina, history of coronary disease, pneumonia, PE Lab Review: Labs reviewed as found on the chart initial troponin 21. Imaging: Chest x-ray no acute findings Assessment of risk: Level of risk: High Hospitalization considerations: Admit to the hospital for unstable angina that has been escalating over the last week Reexamination: Stable at this time no further chest pain Assessment and plan: Patient has a history of coronary disease progressively increasing anginal symptoms initially had stable angina now having unstable angina today. Initial EKG does not show any acute changes first troponin 21. Given his personal history of known coronary artery disease and progressively worsening angina to the point with unstable angina will admit this point started on heparin topical nitro glycerin has been given oral aspirin discussed with hospitalist and with cardiology. Medical Records I reviewed the patient's medical records. Lab Data I reviewed the patient's lab results. 03/13/25 20:30 03/13/25 20:30 Radiology Impressions Chest X-Ray 03/13/25 20:08 IMPRESSION: No acute findings. Laboratory Results WBC 7.37 10^3/uL (3.29-11.43) 03/13/25 20: RBC 5.40 10^6/uL (3.85-5.65) 03/13/25 20: Hgb 16.20 g/dL (11.27-16.99) 03/13/25 20: Hct 47.9 % (37-53) 03/13/25 20: MCV 88.7 fl (82-101) 03/13/25 20: MCH 30.0 pg (27-33) 03/13/25 20: MCHC 33.8 g/dL (30-55) 03/13/25 20: RDW 11.9 % (12.1-15.1) L 03/13/25 20: Plt Count 305 10^3/cmm (157-399) 03/13/25 20: MPV 8.2 fL (7.4-10.4) 03/13/25 20: Neut % (Auto) 56.7 % 03/13/25 20: Lymph % (Auto) 27.5 % 03/13/25 20: [place] % (Auto) 6.8 % 03/13/25 20: Eos % (Auto) 7.7 % 03/13/25 20: Baso % (Auto) 1.2 % 03/13/25 20: Neut # (Auto) 4.17 10^3/uL (1.8-7.7) 03/13/25 20: Lymph # (Auto) 2.0 10^3/uL (0.8-4.8) 03/13/25 20: [place] # (Auto) 0.5 10^3/uL (0.2-0.9) 03/13/25 20:30 Eos # (Auto) 0.6 10^3/uL (0.0-0.8) 03/13/25 20: Baso # (Auto) 0.1 10^3/uL (0.0-0.1) 03/13/25 20:30 Nucleated RBC % (auto) 0 % 03/13/25 20: Nucleated RBCs # 0.0 /100WBC 03/13/25 20: Sodium 137 mmol/L (136-145) 03/13/25 20: Potassium 4.4 mmol/L (3.5-5.1) 03/13/25: Chloride 101 mmol/L (98-107) 03/13/25: Carbon Dioxide 25 mmol/L (22-29) 03/13/25: Anion Gap 15.4 (5-19) 03/13/25 20: BUN 14 mg/dL (6-20) 03/13/25: Creatinine 0.9 mg/dL (0.7-1.2) 03/13/25 20: GFR Calculation 93.5 mL/min (90-130) 03/13/25: Glucose 305 mg/dL (65-115) H 03/13/25: Calculated Osmolality 296 mOsm/kg (285-295) H 03/13/25: Calcium 9.0 mg/dL (8.5-10.5) 03/13/25 20: Total Bilirubin 0.2 mg/dL (0.15-1.2) 03/13/25 20: AST 15 U/L (0-40) 03/13/25 20: ALT 20 U/L (0-41) 03/13/25 20: Alkaline Phosphatase 45 U/L (40-130) 03/13/25 20: Troponin T Baseline 21 ng/L (0-15) H 03/13/25 20: Total Protein 7.0 g/dL (6.6-8.7) 03/13/25 20: Albumin 4.0 g/dL (3.5-5.2) 03/13/25 20: Globulin 3.0 g/dL (1.3-4.6) 03/13/25 20:30 All radiology interpretation(s) finalized by discharge EKG Data EKG 1: I personally reviewed and interpreted this EKG as follows: Interpretation: EKG 03/13/20252005. Sinus rhythm rate of 91 OR interval [address]Tc [address] No acute ST changes no T wave inversions. Compared to EKG done 01/11/2023 patient had some slight ST elevation in the anterior related this is no longer present. Discharge Plan Discharge Patient Disposition: Admitted As Inpatient Clinical Impression: Unstable angina pectoris, Coronary artery disease, Diabetes, Hypertension Condition: Stable Coding Level of Care Code ED Stack Attendant for Chg Fwd Heart Score HEART Score Components History: Highly Suspicious EKG: Normal Age: Less than 45 yrs Risk Factors: >/=3 Risk Factors Troponin: Baseline Trop 16-45 ng/L HEART Score RESULT HEART Score: 5
[2025-03-13 21:07] LABS: Anion Gap 15.4 (5-19); Potassium 4.4 mmol/L (3.5-5.1)
--- NOTE | 2025-03-13 21:40 | PC.NURSE ---
waiting fot rx to change dose on pt and waiting for charge nurse to check dose so i can admin
[2025-03-13] MEDS: heparin 5,000 unit/mL INJ 1 mL IVP (22:05)
[2025-03-13] MEDS: heparin drip 25,000 UNIT/500 ML PREMIX 28.77 UNIT IV (22:06)
--- NOTE | 2025-03-13 22:07 | ECG_ITS ---
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 Measurements Intervals [place] Rate: 70 P: 30 IA: 176 QRS: 44 QRSD: 90 T: 52 QT: 367 QTc: 397 Interpretive Statements SINUS RHYTHM Compared to ECG 03/13/2025 20:06:50 No significant changes Electronically Signed On 03-15-2025 18:06:11 OPERATING ROOM TECHNOLOGIST by Raul Morales M.D. [email or web address] [id number]
--- NOTE | 2025-03-13 23:30 | PM.HP ---
Providers/Chief Complaint Chief Complaint: CP, SOB History of Present Illness Gokul Adams is a 39 year old male with history significant for CAD s/p stenting to the LAD in 2022, who presents with complaints of chest pain. He states the chest pain started at 7:30pm and was across the entire chest. He had no pain during the interview but did describe the pain as heartburn. There was no radiation to the pain, and it was a 3 or 4 out of 10 earlier in the day. Pain is worse with activity but did come about while at rest today. He says the pain reminds him of the pain he experienced just prior to his LAD stenting in 2022. There was also associated shortness of breath with his complaints. Medications/Allergies Home Medications ?Medication ?Instructions ?Recorded ?Confirmed ?Last Taken ?Type aspirin 81 mg tablet,delayed 162 mg PO .ONCE ON 01/11/23 01/12/23 01/22/23 01/11/23 History release 2 tabs atorvastatin 80 mg tablet 80 mg PO BEDTIME #90 tabs 01/12/23 01/22/23 Unknown Rx clopidogrel 75 mg tablet 75 mg PO DAILY #90 tabs 01/12/23 01/22/23 Unknown Rx metoprolol tartrate 50 mg tablet See Rx Instructions .Route 01/21/24 Unknown Rx .COMPLEX #60 tabs aspirin 81 mg tablet,delayed 81 mg PO DAILY #90 tabs 02/21/24 Unknown Rx release losartan 100 mg tablet 100 mg PO DAILY #90 tabs 02/21/24 Unknown Rx Allergies Allergy/AdvReac Type Severity Reaction Status Date / Time No Known Allergies Allergy Verified 01/22/23 11:29 PFSH Acute PFSH: Medical History (Updated 03/13/25 @ 23:42 by Adam Carranza MD) Coronary artery disease involving [place] heart with unstable angina pectoris, unspecified vessel or lesion type NSTEMI (non-ST elevated myocardial infarction) Methamphetamine abuse Vitals/I&O/Wt Last Vital Signs Temp 98.4 F 03/13/25 20:15 Pulse 80 03/13/25 23:20 Resp 18 03/13/25 20:15 BP 153/127 03/13/25 23:20 Pulse Ox 95 03/13/25 23:20 O2 Del Method Room Air 03/13/25 23:20 Weight last 48 hrs Weight 119.862 kg Weight 117.934 kg Physical Exam Narrative: GENERAL: Patient is alert, awake and oriented x3. [] NECK: No jugular vein distension. [] HEENT: No cyanosis. No icterus. No pallor. [] HEART: Regular S1 and S2. No murmur, rub or gallop. [] LUNGS: Clear to auscultate bilaterally. []] CENTRAL NERVOUS SYSTEM: Grossly nonfocal. [] EXTREMITIES: No significant lower extrmiety edema. Data 03/13/25 20:30 03/13/25 20:30 A&P Assessment and plan 1. Unstable angina pectoris: - Concerning presentation with high risk patient with known CAD and prior stenting - Continue heparin infusion - Consult cardiology in the AM - Check lipid panel and A1c - NPO except meds - Continue statin, DAPT, ARB, and BB 2. Coronary artery disease involving [place] heart with unstable angina pectoris, unspecified vessel or lesion type: As above 3. Hypertension, unspecified type: As above 4. Diabetes: - Low SSI while hospitalized PDMP PDMP Reviewed: Not Reviewed Attestations Medical Necessity Statement*: Patient will require greater than two midnights inpatient to manage unstable angina Coding Level of Care Code Acute Code for [facility] Fwd Diagnoses Unstable angina pectoris I20.0 Coronary artery disease involving [place] heart with unstable angina pectoris, unspecified vessel or lesion type I25.110 Coronary Disease-Associated Artery/Lesion type: unspecified vessel or lesion type [place] vs. transplanted heart: [place] heart Associated angina: with unstable angina Hypertension, unspecified type I10 Hypertension type: unspecified Diabetes E11.9
[2025-03-13 23:50] LABS: Troponin 5 2HR 20.51 ng/L (0-15)
[2025-03-13 23:52] LABS: Troponin 5 2HR Delta -0.49 ABS# (0-10)
[2025-03-14] VITALS (40 sets, daily range): BP systolic 113–153; BP diastolic 67–109; PULSE 39–86; RESP 10–25; TEMP 35.9–36.8; O2SAT 89–100; BMI 38.7
[2025-03-14 00:39] LABS: Cholesterol 224 mg/dL (0-200); HDL Cholesterol 28 mg/dL (60-100); Triglycerides 504 mg/dL (0-150)
[2025-03-14 01:34] LABS: Estmated Average Glucose 157; Hemoglobin A1C 7.1 % (4.0-6.0)
[2025-03-14 03:27] LABS: PCP Screen Urine Negative (Negative)
[2025-03-14 03:57] LABS: Hematocrit 47.5 % (37-53); Hemoglobin 15.70 g/dL (11.27-16.99); Mean Corpuscular HGB Conc 33.1 g/dL (30-55); Mean Corpuscular Hemoglobin 29.5 pg (27-33); Mean Corpuscular Volume 89.3 fl (82-101); Nucleated Red Blood Cells % 0 %; Platelet Count 306 10^3/cmm (157-399); Red Blood Count 5.32 10^6/uL (3.85-5.65); White Blood Count 7.48 10^3/uL (3.29-11.43)
[2025-03-14 04:08] LABS: Partial Thromboplastin Time 60.2 SECONDS (23.9-36.7)
[2025-03-14 04:11] LABS: Estmated Average Glucose 166; Hemoglobin A1C 7.4 % (4.0-6.0); Troponin 5 6HR 19.22 ng/L (0-15)
[2025-03-14 04:13] LABS: Anion Gap 14.9 (5-19); Blood Urea Nitrogen 12 mg/dL (6-20); Calcium 8.7 mg/dL (8.5-10.5); Carbon Dioxide 24 mmol/L (22-29); Chloride 105 mmol/L (98-107); Osmolality Calculated 291 mOsm/kg (285-295); Potassium 3.9 mmol/L (3.5-5.1); Sodium 140 mmol/L (136-145)
--- NOTE | 2025-03-14 04:14 | ECG_ITS ---
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 Measurements Intervals [place] Rate: 71 P: 34 IA: 173 QRS: 39 QRSD: 94 T: 77 QT: 382 QTc: 417 Interpretive Statements SINUS RHYTHM Compared to ECG 03/13/2025 22:13:32 No significant changes Electronically Signed On 03-15-2025 17:40:39 GASKET NOTCHER by Raul Morales M.D. [email or web address] [id number]
[2025-03-14 04:16] LABS: Troponin 5 6HR Delta -1.78 ng/L (0-12)
[2025-03-14 04:19] LABS: Glucose 122 mg/dL (65-115)
--- NOTE | 2025-03-14 04:27 | PC.NURSE ---
contacted MD about patient's HR getting down in the 30s on tele, Tele strip of HR of 39 posted in paper chart, MD ordered EKG, EKG obtained, EKG read Sinus Rhythm with HR of 71, patient was awake at time of EKG, MD stated Ok, it'll be low when sleeping. No problem
[2025-03-14] MEDS: LOSARTAN 100 MG TABLET PO (05:20)
--- NOTE | 2025-03-14 08:05 | XACV_ITS ---
Exam Room: [facility] Ht: 175 cm Wt: 120 kg BSA: 2.47 m2 Gender: Male : 1985 Performing Physician(s): Dr. Morales Any Known Allergies: No known allergies Exam Priority: Routine Procedure(s): Procedure Description: Diagnostic procedure Procedure Description: PCI procedure Procedure Description: Drug Eluting Coronary Stent Procedure Description: PTCA Procedure Description: Miscellaneous Procedure Description: Angio-Seal Procedure Description: ACT Procedure Description: Coronary Angiography Diagnostic Cath Status: Urgent Diagnostic Findings * Left main: Normal. * LAD: 80% stenosis in the proximal segment just proximal to the previously placed stent in mid vessel. There is a 95 percent stenosis at bifurcation with medium size diagonal branch. There is SURJIT II flow to the distal LAD. * LCx: Medium size nondominant vessel with minor irregularities. Small size OM 2 has 99% stenosis in the proximal segment. * RCA: Large dominant vessel. Minor irregularities throughout the vessel. Small LPDA with no significant disease. Large size PLV with 60% stenosis in the midsegment. PCI Status: Urgent PCI Indication: New Onset Angina <= 2 months Interventional Findings * Angioplasty of proximal and mid stenosis of LAD performed the left system was engaged with 6 American XB guide 3.5. The lesion in the LAD was crossed with run-through wire to a second wire was placed in the diagonal branch at the bifurcation with the mid LAD stenosis. Predilatation of mid and proximal lesions were performed using 2.5 x 12 balloon. Subsequently a SARA 3.5 x 22 was deployed at mid LAD stenosis and a SARA 3.5 x 15 deployed at proximal stenosis. The both stents were deployed overlapping with the distal and proximal part of previously placed stent. Post stent dilatation with 3.5 NC balloon at high pressures. Post stent excellent angiographic result with SURJIT-3 flow. Balloon angioplasty of OM 2 branch was performed with 2.0 x 15 balloon at low pressure. * Postprocedure patient is hemodynamically stable. The right femoral artery, the site of arteriotomy was closed successfully using Angio-Seal. * No complication related to the procedure. Conclusions 1. 1. Severe disease in proximal and mid LAD. Mild ISR in the proximal segment of previously placed stent. 2. 2. 3. Successful angioplasty of proximal and mid LAD with drug-eluting stents. Postprocedure excellent angiographic result SURJIT-3 flow. 4. Balloon angioplasty of small medium sized OM 2. Recommendations * Post PCI management overnight. * Aggressive risk factor management. Diagnostic RX Recommendation: PCI w/o planned CABG Anticoagulation: Heparin Pressures Phase:Rest AO : 111 / 90 ( 101 ) @ 9:55:00 AM 108 / 88 ( 99 ) @ 9:58:00 AM 111 / 88 ( 101 ) @ 10:04:00 AM 106 / 80 ( 94 ) @ 10:23:00 AM 131 / 95 ( 113 ) @ 10:31:00 AM 131 / 95 ( 114 ) @ 10:36:00 AM 122 / 84 ( 103 ) @ 10:45:00 AM 120 / 79 ( 97 ) @ 10:49:00 AM Clinical Evaluation EBL: 5mL-10mL Procedural Details Procedure Consent Obtained. Current Diagnosis : Chest Pain. Pre-Procedure Time Out. Identified patient by full name and date of as verbalized by the patient/guarantor. Does the consent match the physician's order: Yes. Accurate & Complete Informed Consent: Yes. Inpatient/Outpatient History & Physical on Chart: Yes. If H&P is completed, is and addenduem needed: No; If yes, is the addendum complete: N/A. Visualize and Verify Site with Patient/Guarantor: N/A. Relevant Radiology Images available: Yes. Pre-op teaching completed and patient verbalized understanding. The risks, benefits, and alternatives of sedation and/or procedure were discussed by physician. The patient agrees to continue. Procedure started. [facility] Clinical Fraility Score: 3: Managing Well. Refining Supervisor Indications: ACS > 24 hours. Chest Pain Symptom Assessment: Typical Angina Symptoms. Current diagnosis: Chest Pain. PERRLA. 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 Lungs clear x 5 lobes. IV Site on Arrival: 20 gauge in the left anticubital. Oxygen started at 2liters/min via nasal canula. bilateral groins was prepped with chloroprep then draped in the usual sterile fashion. Baseline sample Acquired. HR: 20 BPM. Physician notified. Physician arrived. Physician scrubbed in. Immediate Pre-Procedure Time Out. Correct Patient: Yes; Correct Procedure: Yes; Correct Site: Yes; Correct Patient Position: Yes; Correct Supplies: Yes; Dried Flammable Prep: Yes; Blood Products Available: N/A;. Lidocaine 1% infiltrated to the right groin. Arterial access obtained. Wire and needle removed. Arterial access obtained with micropuncture set. A 5 romanian JL4 catheter in over wire. Multiple views taken of left coronary artery. Catheter removed over the standard wire. Multiple views taken of right coronary artery. Physician scrubbed out. Physician review of cine films. Dr. Morales scrubbed in. Catheter removed over the standard wire. Suad Foley in for Joce Richards. 6 romanian XB 3.5 guide catheter was inserted over the wire. Runthrough guidewire was advanced through the guide catheter to lesion in the prox LAD. The second Runthrough guidewire was advanced through the guide catheter to lesion in the diaganol. Inflation number : 1 A AB TREK 2.50X12 RX BALLOON was prepped and advanced across the Mid LAD , then inflated to 12 DM for 0:13 seconds. Inflation number: 2 The AB TREK 2.50X12 RX BALLOON was reinflated across the Mid LAD, to 10 DM for 0:13 seconds. Balloon out. Balloon reinserted over the 2nd runthrough wire to the diagonal. Inflation number: 1 The AB TREK 2.50X12 RX BALLOON was reinflated across the 1st Diag, to 6 DM for 0:09 seconds. Inflation number: 2 The AB TREK 2.50X12 RX BALLOON was reinflated across the 1st Diag, to 7 DM for 0:09 seconds. Balloon out. Results checked. Stent inserted to lesion in the mid LAD. Inflation Number : 1 A MDT R BORIS 3.5X22 SARA -Lot Number# [id number] Exp 10/25/2025 was prepped and advanced across the Mid LAD1. The stent was deployed at 13 DM for 0:19 seconds. Results checked. Stent balloon out over wire. Balloon inserted to lesion in the mid LAD. Inflation number : 2 A MDT NC EUPHORA RX [id number] BALLOON was prepped and advanced across the Mid LAD1 , then inflated to 16 DM for 0:16 seconds. Inflation number: 3 The MDT NC EUPHORA RX 3.09L10GA BALLOON was reinflated across the Mid LAD1, to 16 DM for 0:13 seconds. Inflation number: 4 The MDT NC EUPHORA RX 3.34D11EQ BALLOON was reinflated across the Mid LAD1, to 17 DM for 0:14 seconds. Inflation number: 5 The MDT NC EUPHORA RX 3.97X83UP BALLOON was reinflated across the Mid LAD1, to 12 DM for 0:08 seconds. Inflation number: 1 The MDT NC EUPHORA RX 3.99X18XI BALLOON was reinflated across the Prox LAD, to 6 DM for 0:13 seconds. Balloon out. Inflation Number : 2 A MDT R BORIS 3.5X15 SARA -Lot Number# _[id number] EXP: 01/29/2027 was prepped and advanced across the Prox LAD. The stent was deployed at 15 DM for 0:14 seconds. Stent balloon out over wire. Inflation number: 3 The MDT NC EUPHORA RX [id number] BALLOON was reinflated across the Prox LAD, to 16 DM for 0:14 seconds. Balloon out. Results checked. Wire redirected to the OM. Inflation number : 1 A AB MINI TREK 2.00X15 RX BALLOON was prepped and advanced across the 1st Ob [place]igo , then inflated to 6 DM for 0:12 seconds. Inflation number: 2 The AB MINI TREK 2.00X15 RX BALLOON was reinflated across the 1st Ob [place], to 9 DM for 0:18 seconds. Balloon out. Results checked. Wire out. Results checked. Guide catheter out. ACT drawn. Results 325 seconds. Therapeutic limits - pre-heparin administration 90-150 seconds and monitoring heparin during a vascular procedure >250 seconds. A Right femoral angiogram was performed to determine safe placement of closure device. A Angio-Seal VIP ([facility]) was successful obtaining hemostatsis at the Right Femoral artery insertion site. PERRLA. 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 No VTE prophylaxis required. Medication's Wasted: Lidocaine 1% = 10 mL. Medication's Wasted: Heparin = 1000 units. Medication's Wasted: Other = Fentanyl 50mcg Versed 1 mg. Total IV fluids: 150 mL. Post-op diagnosis: CAD. Complications: None. Estimated blood loss: 5mL-10mL. Responsiveness - Normal response to verbal stimuli; alert and oriented, PERRLA. Airway - Unaffected, no intervention required; spontaneous ventilation. Circulation: W/N/L, pulses unchanged. Nausea/Vomiting: No. Vital chart was stopped. Procedure completed. Patient transferred by bed to 1st floor. Access Site Site: Right Femoral artery Sheath Size: 6 Fr Hemostasis Method: Angio-Seal VIP ([facility]) Hemostasis Success: Successful Complication Findings: None. Procedure Medications Start: 9:38 AM Stop: 9:38 AM Medication: Versed Amount: 1 mg Route: I.V. Start: 9:38 AM Stop: 9:38 AM Medication: Fentanyl Amount: 50 mcg Route: I.V. Start: 9:39 AM Stop: 9:39 AM Medication: Benadryl Amount: 50 mg Route: I.V. Start: 10:18 AM Stop: 10:18 AM Medication: Heparin Amount: 31598 units Route: I.V. I, the attending physician, have reviewed and verified all procedure medications. Yes, all medications given per verbal order History/Risk Factors Hypertension: Yes Dyslipidemia: No Peripheral Arterial Disease (PAD): No Myocardial Infarction (VT): No Obesity: No Renal Disease: No Prior Interventions PCI: No CABG: No Valve Surgery: No Report Signatures Finalized by Raul Morales MD on 03/14/2025 01:30 PM
--- NOTE | 2025-03-14 08:54 | P.CONIM_ITS ---
Providers/Reason For Consult 2 Consulting Physician/Specialty*: Medicine/hospitalist Reason for Consult*: Unstable angina Requesting Physician: Dr. Rajan Attending Physician: Nadege London NP History of Present Illness History of Present Illness Gokul Adams is a 39 year old male with a known history of coronary disease, angioplasty of LAD 2 years ago after an NSTEMI episode. Although patient has not been followed up in the cardiology clinic however he claims to continue to take his medicines including DAPT regularly. Last night he was admitted with worsening symptoms of chest pain, typical of angina. He has been having chest pain on exertion for couple of weeks and yesterday for the day he was having chest pains/pressure across his chest at rest. On arrival the EKG was unremarkable. First troponin is mildly elevated, the second is normal with normal delta. Overnight he remained stable. Chest pain is better on IV heparin and Nitropaste. His blood pressure is moderately controlled. Clinically no heart failure symptoms. He still occasionally take amphetamine has been an issue for years. Review of Systems 2 Narrative: Detailed 10 point systemic review unremarkable except for as mentioned above in the history of illness. Medications/Allergies Home Medications ?Medication ?Instructions ?Recorded ?Confirmed ?Last Taken ?Type clopidogrel 75 mg tablet 75 mg PO DAILY #90 tabs 12/1903/14/25 03/13/25 06:00 Rx metoprolol tartrate 50 mg tablet See Rx Instructions . Route 01/21/24 03/14/25 03/13/25 21:00 Rx .COMPLEX #60 tabs aspirin 81 mg tablet,delayed 81 mg PO DAILY #90 tabs 1 04/22/23 03/14/25 03/13/25 06:00 Rx release losartan 100 mg tablet 100 mg PO DAILY #90 tabs 08/1003/14/25 03/13/25 06:00 Rx Allergies Allergy/AdvReac Type Severity Reaction Status Date / Time No Known Allergies Allergy Verified 01/22/23 11:29 Current Medications Generic Name Dose Route Start Last Admin Trade Name Freq PRN Reason Stop Dose Admin Aspirin 81 mg 03/14/25 05:00 03/14/25 05:20 Aspirin 81 Mg Ec Tablet PO 81 mg DAILY ANYI Administration Clopidogrel Bisulfate 75 mg 03/14/25 05:00 03/14/25 05:20 Clopidogrel 75 Mg Tablet PO 75 mg DAILY ANYI Administration Heparin Sodium/Sodium Chloride 25,000 unit in 500 mls @ 28.767 mls/hr 03/13/25 20:45 03/14/25 04:13 Heparin Drip IV 12 unit/kg/hr CONT ANYI 28.77 mls/hr Protocol Titration 12 UNIT/KG/HR Insulin Human Lispro 0 unit 03/14/25 08:00 03/14/25 07:52 Insulin Lispro 100 Unit/1 Ml SUBCUT Not Given WM&BEDTIME ANYI Protocol Losartan Potassium 100 mg 03/14/25 05:00 03/14/25 05:20 Losartan 100 Mg Tablet PO 100 mg DAILY ANYI Administration PFSH Acute 2 PFSH: Medical History Coronary artery disease involving [place] heart with unstable angina pectoris, unspecified vessel or lesion type NSTEMI (non-ST elevated myocardial infarction) Methamphetamine abuse Vitals/I&O/Wt Last Vital Signs Temp 97.9 F 03/14/25 04:00 Pulse 63 03/14/25 05:55 Resp 16 03/14/25 04:00 BP 146/90 03/14/25 04:00 Pulse Ox 96 03/14/25 04:00 O2 Del Method Room Air 03/14/25 04:00 03/13/25 03/14/25 03/14/25 22:59 06:59 14:59 Intake Total 175.977 / 175.977 Output Total 400 / 400 Balance -224.023 / -224.023 Weight last 48 hrs Weight 265 lb 14.04 oz Weight 267 lb 6.731 oz Weight 264 lb 4 oz Weight 260 lb Physical Exam 2 Narrative: Patient is lying comfortably on the table. He has not not any further chest pain. His vitals revealed a blood pressure moderately controlled overnight. Const: OTHER: Normal HENMT: OTHER: Normal Eye: OTHER: Normal Chest: OTHER: No chest wall tenderness. No bruises. Resp: OTHER: Good air entry on lung auscultation bilaterally. No added sounds. Cardio: OTHER: Normal 1st and 2nd heart sounds. No added sounds. GI: OTHER: Abdomen is obese however soft nontender. Bowel sounds audible. Extremity: OTHER: Trace bilateral lower extremity edema. Distal pulses 1+ palpable. Neuro: OTHER: Grossly intact and nonfocal. Skin: OTHER: Skin warm and dry. Data 03/14/25 03:33 03/14/25 03:33 A&P Assessment and plan 1. Unstable angina pectoris: 2. Coronary artery disease involving [place] heart with unstable angina pectoris, unspecified vessel or lesion type: 3. Hypertension, unspecified type: 4. Diabetes: Plan: 39-year-old male patient with a known history of coronary disease, previous angioplasty of LAD 2022 for NSTEMI now presenting with symptoms of typical unstable angina. The symptoms have been worsening over the last couple of weeks and on exertion and in the last 24-hour he had angina pain at rest. Clinically no heart failure. Blood pressure moderately controlled. Plan: Considering typical unstable angina symptoms and other significant risk factors, plan to do coronary angiogram as the pretest probability is significantly high for symptomatic CAD. I explained the procedure to the patient, discussed in detail risks and benefits. Answered of all of his questions. Patient agrees for the procedure. PDMP PDMP Reviewed: Not Reviewed Coding Level of Care Code 98959 Diagnoses Unstable angina pectoris I20.0 Coronary artery disease involving [place] heart with unstable angina pectoris, unspecified vessel or lesion type I25.110 Associated angina: with unstable angina Coronary Disease-Associated Artery/Lesion type: unspecified vessel or lesion type [place] vs. transplanted heart: [place] heart Hypertension, unspecified type I10 Hypertension type: unspecified Diabetes E11.9 Time Spent (min) 30
--- NOTE | 2025-03-14 09:08 | P.PN_ITS ---
Subjective 2 Subjective: Patient sitting up on side of the bed on room air, family noted to be at bedside during my evaluation. Patient denies chest pain, pressure, tightness, palpitations, SOB this morning. He states that his chest pain was was relieved before admission. He reported that he had been having chest pain intermittently for about a week. Patient scheduled for Stain Wiper procedure this a.m. with Dr. Morales. All questions and concerns addressed with patient at bedside. Vitals/I&O/Wt Last Vital Signs Temp 97.9 F 03/14/25 04:00 Pulse 63 03/14/25 05:55 Resp 16 03/14/25 04:00 BP 146/90 03/14/25 04:00 Pulse Ox 96 03/14/25 04:00 O2 Del Method Room Air 03/14/25 04:00 03/13/25 03/14/25 03/14/25 22:59 06:59 14:59 Intake Total 175.977 / 175.977 Output Total 400 / 400 Balance -224.023 / -224.023 Weight last 48 hrs Weight 120.6 kg Weight 121.3 kg Weight 119.862 kg Weight 117.934 kg Physical Exam 2 Narrative: General: A&O, sitting on side of the bed, no apparent distress. HEENT: Normocephalic, atraumatic, grossly unremarkable exam Cardio: NSR , normal S1-S2 w/o any murmurs, rubs, or gallops and JVD normal Respiratory: Clear on auscultation without any wheezes, stridor, rhonchi GI: Abdomen soft, nontender, nondistended, normoactive bowel sounds present Neuro: intact cranial nerves motor and sensory and cerebellar/coordination function without any focal neurological deficit Behavior: Appropriate and cooperative Extremities: Adequate palpable pulses. Data 03/14/25 03:33 03/14/25 03:33 A&P Assessment and plan 1. Unstable angina pectoris: 2. Coronary artery disease involving [place] heart with unstable angina pectoris, unspecified vessel or lesion type: 3. Hypertension, unspecified type: 4. Diabetes: Plan: Unstable Angina CAD ? Patient with known CAD and prior stent placement to proximal LAD 01/19/[address] Moreno ? Cardiology consulted, 03/14: patient s/p stent placement x2 with Dr. Morales ? 03/13 Labs reviewed as follows: Baseline troponin: 21, 120-minute troponin: 21.51, delta troponin: -0.49, 6-hour troponin 19.22, 6-hour delta -1.78 ? 03/13: Lipid panel: Triglycerides: 504, Cholesterol 224, LDL 146, HDL 28 ? 03/13 A1c: 7.4% ? Urine tox: Positive for amphetamines ? Heparin drip initiated on admission 03/13, nitro paste placed at this time. ? I&Os q12hr, dly wt, cardiac diet ? Cardiac monitoring ? Continue home medication aspirin 81 mg p.o., clopidergrel 75mg PO ? Initiate atorvastatin 80mg PO dly per cardiology ? Scheduled nicotine patch 21mg ? Monitor for signs/symptoms of withdrawal HTN ? V/S q4hr ? Continue home medication: Losartan 100 mg PO dly, metoprolol 50 mg PO DM2 ? 03/14: A1c: 7.4% ? Cardiac carb consistent diet ? Blood glucose monitoring, ACHS ? Low regimen sliding scale ? Hypoglycemia protocol CODE STATUS: Full code VTE prophylaxis: SCDs, aspirin per cardiology PDMP PDMP Reviewed: Not Reviewed Attestations 2 Medical Necessity Statement*: Patient will require greater than two midnights inpatient for continued medical management s/p stent placement. Likely d/c on 03/15 Coding Level of Care Code 16371 Diagnoses Unstable angina pectoris I20.0 Coronary artery disease involving [place] heart with unstable angina pectoris, unspecified vessel or lesion type I25.110 Associated angina: with unstable angina Coronary Disease-Associated Artery/Lesion type: unspecified vessel or lesion type [place] vs. transplanted heart: [place] heart Hypertension, unspecified type I10 Hypertension type: unspecified Diabetes E11.9
--- NOTE | 2025-03-14 11:20 | PC.NURSE ---
Received pt back from medical lab director pt is alseep due to sedation. Pt wakes up upon verbal stimuli. Educated pt not to lift right hip and right leg, bedrest for few hours post intervention cath, to notify nurse GREG for any unusual pain, burning or pressure and wetness on the groin site. Pt verbalizes understanding. Asked pt if he needs to pee? pt stated he is not ready for it. Call light provided to pt. Applied sandbag to right leg to prevent his leg still. Vital signs monitored. pedal pulses palpable +3.
[2025-03-14 12:29] LABS: Partial Thromboplastin Time > 250.0 SECONDS (23.9-36.7)
--- NOTE | 2025-03-14 14:08 | PC.NURSE ---
manual pressure held for 10 mins since pt still has oozing and the dressing has been saturated from 1255 to 1330 due to slow ooze. Hemostasis achieved since manual pressure. New dressing applied. Sandbag has been re-applied as well. call light provided.
[2025-03-15 03:30] LABS: Platelet Count 292 10^3/cmm (157-399)
[2025-03-15 04:00] VITALS: BP 123/84; PULSE 86; RESP 20; O2SAT 91
[2025-03-15 04:26] VITALS: BMI 38.3
[2025-03-15] MEDS: LOSARTAN 100 MG TABLET PO (05:43)
--- NOTE | 2025-03-15 06:30 | PC.NURSE ---
patient wanting to leave ama, stating he is tired of being poked and prodded, patient educated that his doctor would be here to discharge him this morning, patient did not want to wait, ama form signed, Dr Carranza notified
[2025-03-15 06:33] VITALS: BP 123/84; PULSE 86; RESP 20; TEMP 35.9; O2SAT 93
== END 2025-03-15 06:36 | disposition left against medical advice (07) | DRG 322 ==
LOC: ER 03-14 01:46 → CSU 03-14 01:52
PROVIDERS: Internal Medicine Cardiovascular Disease; Admitting Provider Family Medicine; Emergency Provider Family Medicine; Visit Provider Registered Nurse
PROC: 027035Z Dilation of Coronary Artery, One Artery with Two Drug-eluting Intraluminal Devices, Percutaneous Approach (ICD-10-PCS; principal; 2025-03-14 09:30)
PROC: 027035Z Dilation of Coronary Artery, One Artery with Two Drug-eluting Intraluminal Devices, Percutaneous Approach (ICD-10-PCS; 2025-03-14 09:30)
DX: I25.110 Atherosclerotic heart disease of native coronary artery with unstable angina pectoris (principal); Z53.29 Procedure and treatment not carried out because of patient's decision for other reasons; I10 Essential (primary) hypertension; E11.9 Type 2 diabetes mellitus without complications; F15.10 Other stimulant abuse, uncomplicated; I25.2 Old myocardial infarction; Z79.82 Long term (current) use of aspirin; Z79.02 Long term (current) use of antithrombotics/antiplatelets; Z79.4 Long term (current) use of insulin; Z95.5 Presence of coronary angioplasty implant and graft
CPT/HCPCS: 36415; 36416; 71045; 80048; 80053; 80061; 80306; 82962; 83036; 83721; 84484; 85025; 85049; 85347; 85730; 92920; 93005; 93454; 96365; 96366; 96372; 96375; 99152; 99153; 99285; C1725; C1760; C1769; C1874; C1887; C1894; C9600; G0269; J1200; J1644; J1815; J2250; J3010; J3490; J7030; J9999; Q9967